=== PATIENT | female | born 1950 | race Hispanic/Latino ===

== ENCOUNTER 2022-02-14 09:21 | Emergency (ER) | payer MEDICARE ==
[~2022-02-14] VITALS: Ht 162.6 cm; Wt 95.3 kg
[2022-02-14 09:47] LABS: BASOPHILS % (AUTO) 0.7 % (0.0-5.0); EOSINOPHILS % (AUTO) 1.2 % (0.0-8.0); HEMATOCRIT 39.2 % (36-48); MEAN CORPUSCULAR HEMOGLOBIN 27.5 pg (27.0-33.0); MEAN CORPUSCULAR HGB CONC 32.4 g/dL (32.0-36.0); MEAN CORPUSCULAR VOLUME 84.8 fL (79-99); MONOCYTES % (AUTO) 8.3 % (3.0-13.0); NEUTROPHILS % (AUTO) 76.5 % (40.0-77.0); PLATELET COUNT (AUTO) 246 K/uL (130-400); RED BLOOD CELL COUNT(AUTO) 4.62 MIL/uL (4.00-5.50); RED CELL DISTRIBUTION WIDTH 13.9 % (11.0-15.5); WHITE BLOOD COUNT (AUTO) 10.5 K/uL (4.8-10.8)
[2022-02-14 10:00] LABS: CREATININE 1.4 mg/dL (0.5-1.5); POTASSIUM 4.1 mmol/L (3.5-5.1)
[2022-02-14] MEDS ORDERED: 0.9%NACL 1000ML 1,000 ML IV ONE (10:00)
[2022-02-14 10:10] LABS: TOTAL PROTEIN, SERUM 7.4 g/dL (6.0-8.3)
[2022-02-14] MEDS ORDERED: KETOROLAC 15MG/ML VIAL (15MG/ML) ONE (11:30)
[2022-02-14] MEDS ORDERED: KETOROLAC 15MG/ML VIAL (15MG/ML) IV ONE (11:30)
[2022-02-14 11:45] LABS: APPEARANCE,URINE CLEAR (CLEAR); BILIRUBIN,URINE NEGATIVE (NEGATIVE); COLOR,URINE YELLOW (YELLOW); GLUCOSE, URINE (UA) NEGATIVE (NEGATIVE); KETONES,URINE NEGATIVE (NEGATIVE); LEUKOCYTE ESTERASE ,URINE NEGATIVE (NEGATIVE); NITRATE,URINE NEGATIVE (NEGATIVE); OCCULT BLOOD,URINE TRACE-INTACT (NEGATIVE); PH,URINE 5.5 (5.0-8.0); PROTEIN,URINE NEGATIVE (NEGATIVE); UROBILINOGEN,URINE 0.2 mg/dL (0.2-1.0)
[2022-02-14 11:56] LABS: BACTERIA,URINE Rare /HPF (None Seen); RBC,URINE 0-1 /HPF (0-1); WBC,URINE None Seen /HPF (0-1)
[2022-02-14] MEDS ORDERED: NAPR-1196 PO (11:59)
[2022-02-14 12:05] VITALS: BP 119/64
== END 2022-02-14 12:14 | disposition home or self-care (01) ==
LOC: EDH 09:21
DX: K59.00 Constipation, unspecified (principal); N20.0 Calculus of kidney; I11.0 Hypertensive heart disease with heart failure; I50.9 Heart failure, unspecified; I48.91 Unspecified atrial fibrillation; E86.0 Dehydration; I95.9 Hypotension, unspecified; J44.9 Chronic obstructive pulmonary disease, unspecified; Z95.810 Presence of automatic (implantable) cardiac defibrillator; E66.9 Obesity, unspecified; Z68.36 Body mass index [BMI] 36.0-36.9, adult
CPT/HCPCS: 99285; 84484; 80053; 85025; 81001; 36415; 74176; 96374; 96361; 93005; J7030; J1885; 96375